=== PATIENT | female | born 1995 | race Caucasian/White ===

== ENCOUNTER 2020-06-29 20:28 | Emergency (ER) | payer OTHER ==
--- NOTE | 2020-06-29 20:42 | ERPHSYRPT ---
- History of Present Illness Time Seen by Provider: 06/29/20 20:41 Historian: patient Exam Limitations: no limitations Physician History: This is a 25-year-old white female who is approximately 8 weeks and presents with only nausea and vomiting that has been occurring every hour today since 8 AM. Patient has no vaginal bleeding. She has no abdominal pain. She has no diarrhea. She has no arthralgias or myalgias. She has no chest pain and she has no shortness of breath. Her only complaint is nausea vomiting. She attempted to use Phenergan tablets which is her marketing information manager provided her. However, she was unable to hold this down. She has had no dysuria or hematuria and she has no flank pain. Timing/Duration: today Activities at Onset: none Quality: other (No abdominal pain) Abdominal Pain Onset Location: other (Normal pain) Severity of Pain-Max: none Severity of Pain-Current: none Modifying Factors: Improves With: vomiting Associated Symptoms: loss of appetite, nausea, vomiting, No chest pain, No diaphoresis, No diarrhea, No fever/chills Previous symptoms: no prior history Allergies/Adverse Reactions: No Known Drug Allergies Allergy (Unverified 06/29/20 20:41) Home Medications: Promethazine HCl 25 mg [Phenergan 25 mg] 1 tab PO DAILY 06/29/20 [History] Travel Risk - International Travel Have you traveled outside of the country in past 3 weeks: No - Coronavirus Screening Are you exhibiting any of the following symptoms?: Yes Symptoms: Vomiting/Diarrhea Close contact with a COVID-19 positive Pt in past 14-21 Days: No - Vaccine Status Have you recieved a Covid-19 vaccination: No - Review of Systems Constitutional: No Symptoms Eyes: No Symptoms Ears, Nose, & Throat: No Symptoms, Throat Swelling Cardiac: No Symptoms Abdominal/Gastrointestinal: Nausea, Vomiting, No Abdominal Pain, No Diarrhea Genitourinary Symptoms: No Symptoms Musculoskeletal: No Symptoms Skin: No Symptoms Neurological: No Symptoms Psychological: No Symptoms Endocrine: No Symptoms Hematologic/Lymphatic: No Symptoms Immunological/Allergic: No Symptoms All Other Systems: Reviewed and Negative - Past Medical History Pertinent Past Medical History: Yes - Past Surgical History Past Surgical History: Yes - Nursing Vital Signs Nursing Vital Signs: Initial Vital Signs Temperature 99 F 06/29/20 20:30 Pulse Rate 100 H 06/29/20 20:30 Respiratory Rate 16 06/29/20 20:30 Blood Pressure 128/79 06/29/20 20:30 O2 Sat by Pulse Oximetry 99 06/29/20 20:30 Pain Scale Pain Intensity 0 - Physical Exam General Appearance: no apparent distress, alert, anxiety Eye Exam: PERRL/EOMI, eyes nml inspection Ears, Nose, Throat Exam: normal ENT inspection, moist mucous membranes Neck Exam: normal inspection, non-tender, supple, full range of motion Respiratory Exam: normal breath sounds, lungs clear, airway intact, No chest tenderness, No respiratory distress Cardiovascular Exam: regular rate/rhythm, normal heart sounds, normal peripheral pulses Gastrointestinal/Abdomen Exam: soft, normal bowel sounds, No tenderness, No gu arding, No rebound Pelvic Exam: not done Rectal Exam: not done Back Exam: normal inspection, normal range of motion, No CVA tenderness, No vertebral tenderness Extremity Exam: normal inspection, normal range of motion, pelvis stable Neurologic Exam: alert, oriented x 3, cooperative, loader engineer II-XII nml as tested, normal mood/affect, nml cerebellar function, nml station & gait, sensation nml Skin Exam: normal color, warm, dry Lymphatic Exam: No adenopathy SpO2 Interpretation: normal O2 Delivery: Room Air - Course Nursing assessment & vital signs reviewed: Yes Ordered Tests: Active Orders 24 hr Category Date Time Status IV Insertion STAT Care 06/29/20 20:54 Active AMYLASE Stat Lab 06/29/20 21:08 Completed CBC W DIFF Stat Lab 06/29/20 21:08 Completed CMP Stat Lab 06/29/20 21:08 Completed HCG, Quantitative (Inhouse) Stat Lab 06/29/20 21:08 Completed LIPASE Stat Lab 06/29/20 21:08 Completed Lactic Acid Stat Lab 06/29/20 21:00 Completed UA W/RFX UR CULTURE Stat Lab 06/29/20 20:56 Completed Medication Summary Discontinued Medications Generic Name Dose Route Start Last Admin Trade Name Freq PRN Reason Stop Dose Admin Famotidine 20 mg 06/29/20 20:54 06/29/20 21:32 Pepcid 20 Mg Vial IV 06/29/20 20:55 20 mg STAT ONE Administration Famotidine Confirm 06/29/20 21:25 Pepcid 20 Mg Vial Administered 06/29/20 21:26 Dose 20 mg IV .STK-MED ONE Sodium Chloride 1,000 mls @ 999 mls/hr 06/29/20 20:54 06/29/20 21:33 Sodium Chloride 0.9% 1000 Ml IV 06/29/20 21:54 999 mls/hr .Q1H1M STA Administration Sodium Chloride Confirm 06/29/20 21:25 Sodium Chloride 0.9% 1000 Ml Administered 06/29/20 21:26 Dose 1,000 mls @ ud .ROUTE .STK-MED ONE Ondansetron HCl 4 mg 06/29/20 20:54 06/29/20 21:32 Zofran 4 Mg/2 Ml Vial IV 06/29/20 20:55 4 mg STAT ONE Administration Ondansetron HCl Confirm 06/29/20 21:25 Zofran 4 Mg/2 Ml Vial Administered 06/29/20 21:26 Dose 4 mg .ROUTE .STK-MED ONE Lab/Rad Data: Laboratory Result Diagrams 06/29/20 21:08 06/29/20 21:08 Laboratory Results 06/29/20 06/29/20 06/29/20 Range/Units 21:08 21:08 21:08 WBC 11.1 H (4.0-10.5) K/mm3 RBC 5.00 (4.1-5.4) M/mm3 Hgb 11.1 L (12.0-16.0) gm/dl Hct 35.1 (35-47) % MCV 70.2 L (78-100) fl MCH 22.2 L (26-32) pg MCHC 31.6 L (32-36) g/dl RDW 18.8 H (11.5-14.0) % Plt Count 411 (150-450) K/mm3 MPV 9.0 (7.5-11.0) fl Gran % 79.8 H (36.0-66.0) % Eos # (Auto) 0.02 (0-0.5) Absolute Lymphs (auto) 1.65 (1.0-4.6) Absolute Monos (auto) 0.56 (0.0-1.3) Lymphocytes % 14.9 L (24.0-44.0) % Monocytes % 5.0 (0.0-12.0) % Eosinophils % 0.2 (0.00-5.0) % Basophils % 0.1 (0.0-0.4) % Absolute Granulocytes 8.85 H (1.4-6.9) Basophils # 0.01 (0-0.4) Sodium 138 (137-145) mmol/L Potassium 3.5 (3.5-5.1) mmol/L Chloride 105 (98-107) mmol/L Carbon Dioxide 22 (22-30) mmol/L Anion Gap 14.1 (5-15) MEQ/L BUN 6 L (7-17) mg/dL Creatinine 0.47 L (0.52-1.04) mg/dL Estimated GFR > 60.0 ML/MIN Glucose 83 (74-106) mg/dL Lactic Acid (0.4-2.0) Calcium 9.6 (8.4-10.2) mg/dL Total Bilirubin 0.50 (0.2-1.3) mg/dL AST 20 (14-36) U/L ALT 11 (0-35) U/L Alkaline Phosphatase 62 (38-126) U/L Serum Total Protein 7.6 (6.3-8.2) g/dL Albumin 4.4 (3.5-5.0) g/dL Amylase 70 (30-110) U/L Lipase 69 (23-300) U/L Beta HCG, Quant [id number] mIU/ml Urine Color (YELLOW) Urine Appearance (CLEAR) Urine pH (5-6) Ur Specific [place] (1.005-1.025) Urine Protein (Negative) Urine Ketones (NEGATIVE) Urine Blood (0-5) Terence/ul Urine Nitrite (NEGATIVE) Urine Bilirubin (NEGATIVE) Urine Urobilinogen (0-1) mg/dL Ur Leukocyte Esterase (NEGATIVE) Urine WBC (Auto) (0-5) /HPF Urine RBC (Auto) (0-2) /HPF U Epithel Cells (Auto) (FEW) /HPF Urine Bacteria (Auto) (NEGATIVE) /HPF Urine Mucus (Auto) (NEGATIVE) /HPF Urine Culture Reflexed (NO) Urine Glucose (NEGATIVE) mg/dL 06/29/20 06/29/20 Range/Units 21:00 20:56 WBC (4.0-10.5) K/mm3 RBC (4.1-5.4) M/mm3 Hgb (12.0-16.0) gm/dl Hct (35-47) % MCV (78-100) fl MCH (26-32) pg MCHC (32-36) g/dl RDW (11.5-14.0) % Plt Count (150-450) K/mm3 MPV (7.5-11.0) fl Gran % (36.0-66.0) % Eos # (Auto) (0-0.5) Absolute Lymphs (auto) (1.0-4.6) Absolute Monos (auto) (0.0-1.3) Lymphocytes % (24.0-44.0) % Monocytes % (0.0-12.0) % Eosinophils % (0.00-5.0) % Basophils % (0.0-0.4) % Absolute Granulocytes (1.4-6.9) Basophils # (0-0.4) Sodium (137-145) mmol/L Potassium (3.5-5.1) mmol/L Chloride (98-107) mmol/L Carbon Dioxide (22-30) mmol/L Anion Gap (5-15) MEQ/L BUN (7-17) mg/dL Creatinine (0.52-1.04) mg/dL Estimated GFR ML/MIN Glucose (74-106) mg/dL Lactic Acid 1.2 (0.4-2.0) Calcium (8.4-10.2) mg/dL Total Bilirubin (0.2-1.3) mg/dL AST (14-36) U/L ALT (0-35) U/L Alkaline Phosphatase (38-126) U/L Serum Total Protein (6.3-8.2) g/dL Albumin (3.5-5.0) g/dL Amylase (30-110) U/L Lipase (23-300) U/L Beta HCG, Quant mIU/ml Urine Color YELLOW (YELLOW) Urine Appearance SLIGHTLY CLOUDY (CLEAR) Urine pH 5.0 (5-6) Ur Specific [place] 1.027 (1.005-1.025) Urine Protein 30 (Negative) Urine Ketones MODERATE (NEGATIVE) Urine Blood NEGATIVE (0-5) Terence/ul Urine Nitrite NEGATIVE (NEGATIVE) Urine Bilirubin NEGATIVE (NEGATIVE) Urine Urobilinogen NEGATIVE (0-1) mg/dL Ur Leukocyte Esterase NEGATIVE (NEGATIVE) Urine WBC (Auto) NONE (0-5) /HPF Urine RBC (Auto) NONE (0-2) /HPF U Epithel Cells (Auto) RARE (FEW) /HPF Urine Bacteria (Auto) NONE SEEN (NEGATIVE) /HPF Urine Mucus (Auto) SLIGHT (NEGATIVE) /HPF Urine Culture Reflexed NO (NO) Urine Glucose NEGATIVE (NEGATIVE) mg/dL - Progress Progress: improved, re-examined Counseled pt/family regarding: lab results, diagnosis, need for follow-up - Departure Departure Disposition: Home Clinical Impression: Vomiting during Condition: Stable Critical Care Time: No Referrals: SELENA GUERRA LOAN COUNSELOR [Primary Care Provider] - Additional Instructions: Drink plenty of fluids. Use your Phenergan as prescribed. If you cannot hold down your Phenergan antinausea medicine, then use Zofran as prescribed. Prescriptions: Ondansetron ODT 4 MG [Zofran Odt 4 mg] 4 mg PO Q6H PRN PRN #10 tab.rapdis PRN Reason: Vomiting
[2020-06-29 21:16] LABS: Appearance SLIGHTLY CLOUDY (CLEAR); Bilirubin NEGATIVE (NEGATIVE); Blood NEGATIVE Ery/ul (0-5); Epithelial Cells RARE /HPF (FEW); Glucose NEGATIVE (NEGATIVE); Ketones MODERATE (NEGATIVE); Leukocyte Esterase NEGATIVE (NEGATIVE); Mucus SLIGHT /HPF (NEGATIVE); Nitrite NEGATIVE (NEGATIVE); Protein,Urine Dip 30 (Negative); Specific Gravity 1.027 (1.005-1.025); Urobilinogen NEGATIVE mg/dL (0-1)
[2020-06-29 21:23] LABS: ALBUMIN 4.4 g/dL (3.5-5.0); ALKALINE PHOSPHATASE 62 U/L (38-126); AMYLASE 70 U/L (30-110); ANION GAP 14.1 MEQ/L (5-15); Absolute Neutrophil Ct (ANC) 8.85 (1.4-6.9); BASOPHIL % 0.1 % (0.0-0.4); BLOOD UREA NITROGEN 6 mg/dL (7-17); Basophil (Absolute #) 0.01 (0-0.4); CHLORIDE 105 mmol/L (98-107); Calcium 9.6 mg/dL (8.4-10.2); Carbon Dioxide 22 mmol/L (22-30); Creatinine 1 0.47 mg/dL (0.52-1.04); EST GLOMERULAR FILTRATION RATE > 60.0 ML/MIN; Eosinophil % 0.2 % (0.00-5.0); Eosinophil (Absolute #) 0.02 (0-0.5); Glucose 83 mg/dL (74-106); Hematocrit 35.1 % (35-47); Hemoglobin 11.1 gm/dl (12.0-16.0); LIPASE 69 U/L (23-300); Lymphocyte (Absolute #) 1.65 (1.0-4.6); Lymphocytes % 14.9 % (24.0-44.0); Mean Cell Volume 70.2 fl (78-100); Mean Corpuscular Hemoglobin 22.2 pg (26-32); Mean Corpuscular Hgb Concent. 31.6 g/dl (32-36); Monocyte (Absolute #) 0.56 (0.0-1.3); Neutrophil % 79.8 % (36.0-66.0); Platelet Count 411 K/mm3 (150-450); Potassium 3.5 mmol/L (3.5-5.1); Red Cell Distribution Width 18.8 % (11.5-14.0); SGOT/AST 20 U/L (14-36); SGPT/ALT 11 U/L (0-35); SODIUM 138 mmol/L (137-145); Total Protein 7.6 g/dL (6.3-8.2); White Blood Count 11.1 K/mm3 (4.0-10.5)
[2020-06-29 21:24] LABS: Bacteria NONE SEEN /HPF (NEGATIVE)
[2020-06-29] MEDS ORDERED: Pepcid 20 MG VIAL IV ONE (21:25)
[2020-06-29] MEDS ORDERED: Sodium Chloride 0.9% 1000 ML 1,000 ML ONE ×2 (21:25→22:19)
[2020-06-29] MEDS ORDERED: Zofran 4 MG/2 ML VIAL ONE (21:25)
[2020-06-29] MEDS: Pepcid 20 MG VIAL IV ONE (21:32)
[2020-06-29] MEDS: Zofran 4 MG/2 ML VIAL IV ONE (21:32)
[2020-06-29] MEDS: Sodium Chloride 0.9% 1000 ML 1,000 ML IV STA ×2 (21:33→22:20)
[2020-06-29 23:26] VITALS: O2SAT 98
[2020-06-29] MEDS ORDERED: ZOFRAN ODT 4 MG ONE (23:48)
[2020-06-29] MEDS: ZOFRAN ODT 4 MG PO ONE (23:50)
[2020-06-29 23:53] VITALS: BP 102/56; PULSE 96
== END 2020-06-29 23:57 | disposition home or self-care (01) ==
LOC: ED 20:28
DX: O21.9 Vomiting of pregnancy, unspecified (principal); Z3A.08 8 weeks gestation of pregnancy; Z37.9 Outcome of delivery, unspecified
CPT/HCPCS: 36000; 36415; 80053; 81001; 82150; 83605; 83690; 84702; 85025; 96360; 96361; 96374; 96375; 99284; J2405; Q0162

== ENCOUNTER 2021-01-23 22:56 | Observation (INO) | payer OTHER ==
[2021-01-23 23:22] LABS: Appearance CLEAR (CLEAR); Bilirubin NEGATIVE (NEGATIVE); Blood NEGATIVE Ery/ul (0-5); Glucose NEGATIVE (NEGATIVE); Ketones TRACE (NEGATIVE); Leukocyte Esterase NEGATIVE (NEGATIVE); Nitrite NEGATIVE (NEGATIVE); Protein,Urine Dip NEGATIVE (Negative); Specific Gravity 1.005 (1.005-1.025); Urobilinogen NEGATIVE mg/dL (0-1)
[2021-01-23 23:35] LABS: Amphetamine,Urine NEGATIVE (NEGATIVE); Barbiturate,Urine NEGATIVE (NEGATIVE); Benzodiazepine,Urine NEGATIVE (NEGATIVE); Cocaine,Urine NEGATIVE (NEGATIVE); Methadone,Urine NEGATIVE (NEGATIVE); Opiate,Urine NEGATIVE (NEGATIVE); PCP,Urine NEGATIVE (NEGATIVE); THC,Urine NEGATIVE (NEGATIVE)
[2021-01-24] MEDS ORDERED: Lactated Ringers 1,000 ML IV ONE (00:27)
[2021-01-24] MEDS ORDERED: STADOL 2 MG IV PRN (00:28)
== END 2021-01-24 08:05 | disposition home or self-care (01) ==
LOC: OB 22:56
PROVIDERS: ADMIT Obstetrics & Gynecology; ATTEND Obstetrics & Gynecology
DX: Z34.83 Encounter for supervision of other normal pregnancy, third trimester (principal); Z3A.37 37 weeks gestation of pregnancy
CPT/HCPCS: 80307; 81001; G0378; J0595

== ENCOUNTER 2021-02-04 04:29 | Inpatient (IN) | payer OTHER ==
[~2021-02-04 04:29] MED LIST: PITOCIN 30 UNITS/ LR 500 ML 30 UNITS/500 ML PLAST..BAG IV SCH
[2021-02-04] MEDS ORDERED: Ephedrine Sulfate 50 MG/ML IV PRN (05:00)
[2021-02-04] MEDS ORDERED: TYLENOL EXTRA STRENGTH 500 MG PO PRN (05:00)
[2021-02-04] MEDS ORDERED: Lactated Ringers 1,000 ML IV SCH (05:00)
[2021-02-04] MEDS ORDERED: PITOCIN 30 UNITS/ LR 500 ML 30 UNITS/500 ML PLAST..BAG IV SCH ×2 (05:00→08:00)
[2021-02-04] MEDS ORDERED: OB EPIDURAL NAROPIN/SUFENTANIL IN NACL EPIDURAL PRN (05:00)
[2021-02-04] MEDS ORDERED: Zofran 4 MG/2 ML VIAL IV PRN (05:00)
[2021-02-04 05:22] LABS: INFLUENZA A NEGATIVE (NEGATIVE); INFLUENZA B NEGATIVE (NEGATIVE); RESPIRATORY SYNCTIAL VIRUS NEGATIVE (Negative); SARS-CoV-2 Xpert Express NEGATIVE (NEGATIVE)
[2021-02-04] MEDS: Lactated Ringers 1,000 ML IV ONE ×2 (05:23→07:30)
[2021-02-04 05:25] LABS: Absolute Neutrophil Ct (ANC) 4.15 (1.4-6.9); BASOPHIL % 0.3 % (0.0-0.4); Basophil (Absolute #) 0.02 (0-0.4); Eosinophil % 0.8 % (0.00-5.0); Eosinophil (Absolute #) 0.05 (0-0.5); Hematocrit 31.8 % (35-47); Hemoglobin 9.6 gm/dl (12.0-16.0); Lymphocyte (Absolute #) 1.62 (1.0-4.6); Mean Cell Volume 70.8 fl (78-100); Mean Corpuscular Hemoglobin 21.4 pg (26-32); Mean Corpuscular Hgb Concent. 30.2 g/dl (32-36); Mean Platelet Volume 8.9 fl (7.5-11.0); Monocyte (Absolute #) 0.65 (0.0-1.3); Neutrophil % 63.9 % (36.0-66.0); Platelet Count 305 K/mm3 (150-450); Red Blood Count 4.49 M/mm3 (4.1-5.4); Red Cell Distribution Width 31.6 % (11.5-14.0); White Blood Count 6.5 K/mm3 (4.0-10.5)
[2021-02-04 05:28] LABS: Appearance CLEAR (CLEAR); Bilirubin NEGATIVE (NEGATIVE); Blood NEGATIVE Ery/ul (0-5); Epithelial Cells RARE /HPF (FEW); Glucose NEGATIVE (NEGATIVE); Ketones NEGATIVE (NEGATIVE); Leukocyte Esterase NEGATIVE (NEGATIVE); Mucus SLIGHT /HPF (NEGATIVE); Nitrite NEGATIVE (NEGATIVE); Protein,Urine Dip NEGATIVE (Negative); Specific Gravity 1.018 (1.005-1.025); Urobilinogen NEGATIVE mg/dL (0-1)
[2021-02-04 05:51] LABS: Amphetamine,Urine NEGATIVE (NEGATIVE); Barbiturate,Urine NEGATIVE (NEGATIVE); Benzodiazepine,Urine NEGATIVE (NEGATIVE); Cocaine,Urine NEGATIVE (NEGATIVE); Methadone,Urine NEGATIVE (NEGATIVE); Opiate,Urine NEGATIVE (NEGATIVE); PCP,Urine NEGATIVE (NEGATIVE); THC,Urine NEGATIVE (NEGATIVE)
[2021-02-04 05:51] LABS: INR 0.96 (0.8-3.0); PROTIME 11.3 SECONDS (9.4-12.5)
[2021-02-04 05:53] LABS: PTT 24.1 SECONDS (25.1-36.5)
[2021-02-04] MEDS: Lactated Ringers 1,000 ML IV SCH ×2 (06:10→19:34)
[2021-02-04 06:38] LABS: ABO TYPING A; Antibody Screen NEGATIVE (NEGATIVE); RH TYPING POSITIVE
[2021-02-04] MEDS ORDERED: BRETHINE 1 MG/ML SQ PRN (07:00)
[2021-02-04 07:10] LABS: Slide Review 1 YES
[2021-02-04] MEDS ORDERED: XYLOCAINE 1% HCL 20 ML MDV IJ PRN (08:00)
[2021-02-04] MEDS ORDERED: Sodium Chloride 0.9% 1000 ML 1,000 ML ONE (11:06)
[2021-02-04] MEDS ORDERED: Sodium Chloride 0.9% 1000 ML 1,000 ML IV STA (11:10)
[2021-02-04] MEDS ORDERED: LANSINOH 40 GM TOP PRN (12:18)
[2021-02-04] MEDS ORDERED: TUCKS TP PRN (12:18)
[2021-02-04] MEDS ORDERED: Dermoplast Spray TP PRN (12:18)
[2021-02-04] MEDS ORDERED: Nubain 10 MG/ML IV ONE (14:00)
[2021-02-04] MEDS ORDERED: Adacel Vial IM ONE (15:00)
[2021-02-04] MEDS: MOTRIN 400 MG PO PRN (19:35)
[2021-02-04] MEDS: Colace 100 MG PO SCH (21:53)
[2021-02-05] MEDS: MOTRIN 400 MG PO PRN ×2 (03:06→11:49)
[2021-02-05 05:10] LABS: Absolute Neutrophil Ct (ANC) 5.89 (1.4-6.9); BASOPHIL % 0.2 % (0.0-0.4); Basophil (Absolute #) 0.02 (0-0.4); Eosinophil % 1.6 % (0.00-5.0); Eosinophil (Absolute #) 0.14 (0-0.5); Hematocrit 30.7 % (35-47); Hemoglobin 9.1 gm/dl (12.0-16.0); Lymphocyte (Absolute #) 1.78 (1.0-4.6); Lymphocytes % 20.8 % (24.0-44.0); Mean Cell Volume 72.2 fl (78-100); Mean Corpuscular Hemoglobin 21.4 pg (26-32); Mean Corpuscular Hgb Concent. 29.6 g/dl (32-36); Mean Platelet Volume 8.9 fl (7.5-11.0); Monocyte (Absolute #) 0.72 (0.0-1.3); Monocytes % 8.4 % (0.0-12.0); Platelet Count 281 K/mm3 (150-450); Red Blood Count 4.25 M/mm3 (4.1-5.4); Red Cell Distribution Width 31.8 % (11.5-14.0); White Blood Count 8.6 K/mm3 (4.0-10.5)
[2021-02-05 07:11] LABS: Slide Review 1 YES
--- NOTE | 2021-02-05 07:33 | PCM.NOTE ---
Date and Time: 02/05/21730 Subjective Assessment: PPD 1 SP PT RESTING AND DOING WELL WITHOUT COMPLAINTS ABLE TO AMBULATE AND TOLERATE DIET VSS AFEBRILE ABD;; SOFT UTERUS; FIRM LOCHIA; MILD A/P SP PPD 1 STABLE HGB ANTICIPATE DISCHARGE TODAY FU OFFICE 3 WKS OBJECTIVE DATA Vital Signs: Vital Signs - 24 hr Temp Pulse Resp BP BP Pulse Ox 02/05/21 04:00 97.7 F 82 18 106/58 98 02/05/21 00:00 98.1 F 78 17 98/57 97 02/04/21 20:00 97.8 F 92 H 17 105/55 97 02/04/21 16:00 97.9 F 74 18 105/51 02/04/21 14:30 101 H 18 109/58 02/04/21 14:00 101 H 20 109/58 02/04/21 13:30 98.0 F 100 H 18 105/55 02/04/21 13:00 98.1 F 88 18 98/55 97 02/04/21 12:30 98.1 F 91 H 18 97/52 98 02/04/21 12:00 98.1 F 89 20 107/56 98 02/04/21 11:45 98.1 F 96 H 20 112/65 117/63 98 02/04/21 11:30 98.1 F 110 H 20 112/65 100 02/04/21 11:15 98.1 F 89 20 94/50 100 02/04/21 11:00 98.1 F 99 H 20 105/59 97 02/04/21 10:45 98.1 F 92 H 20 99/57 98 02/04/21 10:30 98.1 F 92 H 20 99/57 98 02/04/21 10:15 94 H 20 113/58 98 02/04/21 10:00 105 H 20 108/63 98 02/04/21 09:45 105 H 20 97/55 97 02/04/21 09:30 98 H 18 105/59 97 02/04/21 09:15 100 H 18 109/56 98 02/04/21 09:00 100 H 18 117/70 99 02/04/21 08:45 100 H 18 111/56 99 02/04/21 08:30 96 H 18 111/56 98 02/04/21 08:15 103 H 18 96/54 98 02/04/21 08:00 97.7 F 97 H 22 98 02/04/21 07:56 97.7 F 97 H 22 122/61 98 02/04/21 07:45 97.7 F 97 H 22 122/61 98 Pain Assessment - Last Documented Pain Intensity [Anterior] 2 Pain Intensity [Posterior] 2 Pain Intensity 2 Pain Scale Used 0-10 Pain Scale Intake and Output: Intake & Output 02/02/21 02/03/21 02/04/21 02/05/21 11:59 11:59 11:59 11:59 Intake Total 50 2300 Output Total 1500 600 Balance -1450 1700 Weight 79.832 kg Lab Results: Lab Results-Last 24 Hours 02/05/21 Range/Units 04:57 WBC 8.6 (4.0-10.5) K/mm3 RBC 4.25 (4.1-5.4) M/mm3 Hgb 9.1 L (12.0-16.0) gm/dl Hct 30.7 L (35-47) % MCV 72.2 L (78-100) fl MCH 21.4 L (26-32) pg MCHC 29.6 L (32-36) g/dl RDW 31.8 H (11.5-14.0) % Plt Count 281 (150-450) K/mm3 MPV 8.9 (7.5-11.0) fl Gran % 69.0 H (36.0-66.0) % Eos # (Auto) 0.14 (0-0.5) Absolute Lymphs (auto) 1.78 (1.0-4.6) Absolute Monos (auto) 0.72 (0.0-1.3) Lymphocytes % 20.8 L (24.0-44.0) % Monocytes % 8.4 (0.0-12.0) % Eosinophils % 1.6 (0.00-5.0) % Basophils % 0.2 (0.0-0.4) % Absolute Granulocytes 5.89 (1.4-6.9) Basophils # 0.02 (0-0.4) Slides for Path Review YES Assessment/Plan (1) , delivered Current Visit: Yes Status: Acute Code(s): O34.219 - MATERNAL CARE FOR UNSP TYPE SCAR FROM PREVIOUS DEL (2) , delivered, current hospitalization Current Visit: Yes Status: Acute Code(s): O34.219 - MATERNAL CARE FOR UNSP TYPE SCAR FROM PREVIOUS DEL
--- NOTE | 2021-02-05 07:37 | PCM.DS ---
Discharge Summary Date of Admission: 02/04/21 07:30 Admitting Physician: JAGDEEP MCKNIGHT DO Consults: Consults on Case 02/04/21 07:00 Notify Anesthesia Provider PRN 02/04/21 14:53 Navigation ONCE Primary Care Provider: NO FAMILY DOCTOR Allergies Allergies No Known Drug Allergies Allergy (Verified 02/04/21 04:45) Hospital Summary - Hospital Course Hospital Course: PT ADMITTED ON FEB 04 FOR PITOCIN INDUCTION. PT WITH HX OF PREVIOUS CSECTION SECONDARY TO [place] HOWEVER HAD TWO PRIOR . PT WAS ADMITTED WITH EXAM OF 2-3/70/-2. PT HAD COVID TESTING AND WAS NEGATIVE AND AROM TOOK PLACE IN THE AM WHERE PT SUBSEQUENTLY DELIVERED LIVE [employer] VIA WITHOUT COMPLICATION WITH NUCHAL CORD X 1. DURING PEIROD DID WELL WITH STABLE HGB OF 9 AND AT THIS TIME STABLE FOR DISCHARGE. ALL QUESTIONS ANSWERED TO HER SATISFACTION AND WAS ADVISED TO FU IN OFFICE IN 3 WKS. - Vitals & Intake/Output Vital Signs: Vital Signs Temperature 97.7 F 02/05/21 04:00 Pulse Rate 82 02/05/21 04:00 Respiratory Rate 18 02/05/21 04:00 Blood Pressure 106/58 02/05/21 04:00 O2 Sat by Pulse Oximetry 98 02/05/21 04:00 Intake & Output: Intake & Output 02/02/21 02/03/21 02/04/21 02/05/21 11:59 11:59 11:59 11:59 Intake Total 50 2300 Output Total 1500 600 Balance -1450 1700 Weight 79.832 kg - Lab Result Diagrams: 02/05/21 04:57 Lab Results-Last 24 Hrs: Lab Results-Last 24 Hours 02/05/21 Range/Units 04:57 WBC 8.6 (4.0-10.5) K/mm3 RBC 4.25 (4.1-5.4) M/mm3 Hgb 9.1 L (12.0-16.0) gm/dl Hct 30.7 L (35-47) % MCV 72.2 L (78-100) fl MCH 21.4 L (26-32) pg MCHC 29.6 L (32-36) g/dl RDW 31.8 H (11.5-14.0) % Plt Count 281 (150-450) K/mm3 MPV 8.9 (7.5-11.0) fl Gran % 69.0 H (36.0-66.0) % Eos # (Auto) 0.14 (0-0.5) Absolute Lymphs (auto) 1.78 (1.0-4.6) Absolute Monos (auto) 0.72 (0.0-1.3) Lymphocytes % 20.8 L (24.0-44.0) % Monocytes % 8.4 (0.0-12.0) % Eosinophils % 1.6 (0.00-5.0) % Basophils % 0.2 (0.0-0.4) % Absolute Granulocytes 5.89 (1.4-6.9) Basophils # 0.02 (0-0.4) Slides for Path Review YES Final Diagnosis/Problem List - Final Discharge Diagnosis/Problem (1) , delivered Current Visit: Yes Status: Acute Code(s): O34.219 - MATERNAL CARE FOR UNSP TYPE SCAR FROM PREVIOUS DEL (2) , delivered, current hospitalization Current Visit: Yes Status: Acute Code(s): O34.219 - MATERNAL CARE FOR UNSP TYPE SCAR FROM PREVIOUS DEL - Discharge Disposition: Home, Self-Care Condition: Stable Prescriptions: No Action Promethazine HCl 25 mg [Phenergan 25 mg] 1 tab PO DAILY Ondansetron ODT 4 MG [Zofran Odt 4 mg] 4 mg PO Q6H PRN PRN #10 tab.rapdis PRN Reason: Vomiting Vits W-Ca,Fe,FA(<1Mg) [] 1 each PO DAILY Ferrous Sulfate 325 mg [Feosol 325 mg] 325 mg PO BID Follow up with: DOCTOR,NO FAMILY [Primary Care Provider] - JAGDEEP MCKNIGHT DO [ACTIVE STAFF] - 3 weeks
[2021-02-05 09:00] VITALS: BP 113/60; PULSE 80; O2SAT 96
[2021-02-05 09:01] LABS: HBsAg Screen Negative (Negative)
[2021-02-05] MEDS: Colace 100 MG PO SCH (09:19)
[2021-02-05] MEDS ORDERED: FERREX 150 PO SCH (10:00)
== END 2021-02-05 16:55 | disposition home or self-care (01) | DRG 807 ==
LOC: MED SURG 04:29 → OB 05:55 → MED SURG 07:30 → OBSVTOIN 07:30
PROVIDERS: ADMIT Obstetrics & Gynecology; ATTEND Obstetrics & Gynecology
PROC: 10E0XZZ Delivery of Products of Conception, External Approach (ICD-10-PCS; principal; 2021-02-04)
DX: O34.219 Maternal care for unspecified type scar from previous cesarean delivery (principal); Z37.0 Single live birth; N85.8 Other specified noninflammatory disorders of uterus; Z3A.39 39 weeks gestation of pregnancy; Z20.828 Contact with and (suspected) exposure to other viral communicable diseases
CPT/HCPCS: 0241U; 36415; 59612; 80307; 81001; 85025; 85610; 85730; 86850; 86900; 86901; 87340; 90715; 96372; G0378; J2300; J2590; A9270-GY